=== PATIENT | female | born 1970 | race Caucasian/White ===

== ENCOUNTER 2020-08-06 08:12 | Emergency (ER) | payer MEDICAID ==
[~2020-08-06] VITALS: Ht 154.9 cm; Wt 76.0 kg
[2020-08-06] MEDS ORDERED: BACITRACIN ZINC OINT UDPKT TOP ONE (09:00)
[2020-08-06 09:05] VITALS: BP 100/78
== END 2020-08-06 09:05 | disposition home or self-care (01) ==
LOC: ER 08:12
DX: Z48.00 Encounter for change or removal of nonsurgical wound dressing (principal)
CPT/HCPCS: 10060; 99282